=== PATIENT | male | born 1980 | race Caucasian/White ===

== ENCOUNTER 2025-08-30 01:37 | Emergency (ER) | payer BC, OTHER ==
[2025-08-30 02:07] LABS: #Basophils 0.1 thou/uL (0.0-0.2); #Eosinophils 0.1 thou/uL (0.0-0.7); #Lymphocytes 1.4 thou/uL (1.20-3.40); #Monocytes 0.7 thou/uL (0.11-0.59); #Neutrophils 8.3 thou/uL (1.40-6.50); %Basophils 1.1 % (0.0-1.0); %Eosinophils 0.6 % (0.0-10.0); %Lymphocytes 13.6 % (21.0-51.0); %Monocytes 6.1 % (0.0-10.0); %Neutrophils 78.6 % (42.0-75.0); Hematocrit 52.5 % (42.0-52.0); Hemoglobin 16.6 g/dL (14.0-18.0); Mean Corpuscular Hemoglobin 27.9 pg (27.0-31.0); Mean Corpuscular Volume 88.2 fl (78.0-98.0); Platelet Count 237 10x3/uL (130-400); Red Blood Cell (RBC) Count 5.95 mill/uL (4.70-6.10); White Blood Cell (WBC) Count 10.6 10x3/uL (4.8-10.8)
[2025-08-30 02:16] LABS: ALT (SGPT) 31 U/L (Less than 45); AST (SGOT) 28 U/L (11-34); Albumin 4.5 g/dL (3.1-4.5); Alkaline Phosphatase 68 U/L (40-110); Anion Gap 16 mmol/L (10-20); BUN (Urea Nitrogen) 11 mg/dL (8.9-20.6); Bilirubin, Total 0.8 mg/dL (0.3-1.2); Calc. Creatinine Clearance 0 mL/min (70-130); Calcium 9.8 mg/dL (7.8-10.44); Carbon Dioxide 22 mmol/L (22-29); Chloride 105 mmol/L (98-107); Globulin 3.1 g/dL (2.4-3.5); Glucose 103 mg/dL (70-105); Lipase 23 U/L (8-78); Potassium 4.1 mmol/L (3.5-5.1); Sodium 139 mmol/L (136-145)
[2025-08-30 02:26] LABS: Bacteria/HPF Rare-Few HPF (None Seen); CAUTI Indications for Culture Pelvic or flank pain; Glucose, Urine (Dipstick) Negative (Negative); Leukocyte Negative (Negative); Protein, Urine (Dipstick) Negative (Neg-Trace); Specific Gravity, Urine 1.015 (1.005-1.030); WBC/HPF 0-3 HPF (0-3)
[2025-08-30 02:27] LABS: Urine Culture Reflex No No
[2025-08-30 03:33] LABS: Troponin I Less than 0.010 ng/mL (< 0.028)
== END 2025-08-30 03:37 | disposition short-term general hospital (02) ==
LOC: MADERS 01:37
DX: K81.0 Acute cholecystitis (principal)
CPT/HCPCS: 74177; 80053; 81001; 83690; 84484; 85025; 93005